=== PATIENT | female | born 1960 | race Caucasian/White ===

== ENCOUNTER 2022-09-01 09:23 | Outpatient (CLI) | payer OTHER, SELFPAY ==
[2022-09-01 11:31] LABS: Albumin* 4.2 g/dL (3.3-5.0)
[2022-09-01 11:32] LABS: Chloride* 105 mmol/L (96-114); Potassium* 4.2 mmol/L (3.6-5.1); Sodium* 139 mmol/L (135-149)
[2022-09-01 11:34] LABS: Aspartate Amino Transferase* 20 U/L (12-35); Bilirubin Total* 1.2 mg/dL (0.1-1.5); Blood Urea Nitrogen* 14 mg/dL (7-30); Carbon Dioxide* 27 mmol/L (20-32); Cholesterol* 131 mg/dL (90-199); Creatinine* 0.8 mg/dL (0.5-1.5); Estimated Glomerular Filt Rate 83 ml/min; Glucose* 90 mg/dL (60-115); Total Protein* 6.6 g/dL (6.0-8.3)
[2022-09-01 11:35] LABS: Alanine Aminotransferase* 16 U/L (4-35); Alkaline Phosphatase* 89 U/L (40-150); Calcium* 9.6 mg/dL (8.4-10.6); HDL Cholesterol* 69 mg/dL (>=50); LDL Cholesterol Calculated 52 mg/dL (<100); Triglycerides* 49 mg/dL (40-149)
[2022-09-01 12:08] LABS: TSH With Reflex to FT4* 0.754 uIU/mL (0.270-4.200)
== END 2022-09-01 09:24 | disposition home or self-care (01) ==
PROVIDERS: PCP Family Medicine; Visit Provider Family Medicine
DX: E03.9 Hypothyroidism, unspecified (principal); Z13.6 Encounter for screening for cardiovascular disorders; Z79.899 Other long term (current) drug therapy
CPT/HCPCS: 80053; 80061; 84443

== ENCOUNTER 2022-10-29 09:06 | Outpatient (CLI) | payer OTHER, SELFPAY ==
--- NOTE | 2022-10-29 09:15 | CRLHL7_ITS ---
For Patients: As a result of the Century Cures Act, medical imaging exams and procedure reports are released immediately into your electronic medical record. You may view this report before your referring provider. If you have questions, please contact your health care provider. BILATERAL SCREENING MAMMOGRAM WITH COMPUTER-AIDED DETECTION AND TOMOSYNTHESIS TECHNIQUE: CC and MLO views were obtained. These mammographic images have been obtained using full-field digital technique. These mammographic images were interpreted with the benefit of computer-aided detection. Breast Tomosynthesis was used in this interpretation. COMPARISON FILM: 09/17/21, 07/04/19, 07/29/17. FINDINGS: There are scattered areas of fibroglandular density IMPRESSION: There is no radiographic evidence for malignancy. ASSESSMENT: BI-RADS Category 1: Negative RECOMMENDATION: Routine screening mammogram in 1 year. A lay language report of this examination will be provided to the patient. Francisco Javier Morales M.D. Diagnostic Radiologist [email or web address] EDILIA/Dictated by: Francisco Javier Morales MD @ 10/29/2022 1:26:00 PM (Electronically Signed)
== END 2022-10-29 09:07 | disposition home or self-care (01) ==
LOC: MAMMO 09:06
PROVIDERS: PCP Family Medicine; Visit Provider Family Medicine
DX: Z12.31 Encounter for screening mammogram for malignant neoplasm of breast (principal)
CPT/HCPCS: 77063; 77067

== ENCOUNTER 2023-06-24 09:23 | Outpatient (CLI) | payer OTHER, SELFPAY | END 2023-06-24 09:24 | disposition home or self-care (01) | LOC: NFLDREF 09:25 | PROVIDERS: PCP Family Medicine; Visit Provider Family Medicine | DX: I10 Essential (primary) hypertension (principal); E66.9 Obesity, unspecified | CPT/HCPCS: 80048 ==

== ENCOUNTER 2023-12-23 08:21 | Outpatient (CLI) | payer OTHER, SELFPAY | END 2023-12-23 08:22 | disposition home or self-care (01) | LOC: NFLDREF 14:33 | PROVIDERS: PCP Family Medicine; Referring Provider Family Medicine; Visit Provider Family Medicine | DX: D58.2 Other hemoglobinopathies (principal); E55.9 Vitamin D deficiency, unspecified; E03.9 Hypothyroidism, unspecified; Z79.899 Other long term (current) drug therapy; Z13.220 Encounter for screening for lipoid disorders | CPT/HCPCS: 80053; 80061; 82306; 84443 ==

== ENCOUNTER 2024-03-21 10:05 | Outpatient (CLI) | payer OTHER, SELFPAY ==
--- OUTSIDE RECORDS SUMMARY | 2024-03-21 10:08 | XMS_ITS | Referral Summary ---
Author Organization [facility] Address [address] [place] [address] Care Team Providers Care Port Drier Name Role Phone Unavailable Primary Care Provider Unavailabl e Source Comments Patient records contain information from all sites at [facility]. For routine questions regarding patient records, call [phone] during business hours, M-F 8:00 AM - 5:00 PM Central Time. Record requests for emergency care only can be directed to [phone] at any time.[facility] Allergies Active Allergy Reactions Criticality Noted Date Comments Gluten GI intolerance 07/06/2018 swelling Medications Medication Sig Dispensed Refills Start Date End Date Status potassium chloride (KLOR-CON SPRINKLE) 10 mEq ER sprinkle capsule Take 1 capsule by mouth 2 (two) times a day. 03/24/2022 Active levothyroxine (SYNTHROID, LEVOTHROID) 75 mcg tablet Take 75 mcg by mouth every morning before breakfast. 05/25/2023 Active triamterene-hydroC HLOROthiazide (DYAZIDE) 37.5-25 mg per capsule Take 1 capsule by mouth daily. 11/28/2015 Active UNABLE TO FIND Progesterone 200/DHEA 8.5 mg/Testosterone 1.5 mg/g (topiclick), 1/2 gm qhs 05/15/2023 Active hydrocortisone (Anucort-HC) 25 mg suppository Insert 25 mg into the rectum once a week. 02/18/2023 Active UNABLE TO FIND methylcobalamine 5mg/ml with preservatives, 0.2 ml once weekly. 10ml x 2 vials. Syringe 1 ml 29 G x 1/2 excel comfort point- quantity 50 02/05/2023 Active L.acidoph-L.bulg-B .bif-S.therm (BACID) 1 billion cell- 250 mg per tablet Take 1 tablet by mouth daily. Active magnesium citrate 100 mg tablet Take by mouth 4 (four) times a day. 150 MG FOUR TIMES DAILY Active ascorbic acid, vitamin C, (Vitamin C) 1,000 mg tablet Take 1,000 mg by mouth daily. 2000 MG DAILY Active zinc acetate (GALZIN) 25 mg (zinc) capsule Take 50 mg by mouth 2 (two) times a day. Active cholecalciferol (Vitamin D3) 50 mcg (2,000 Unit) tablet Take 50 mcg by mouth daily. Active ibuprofen (ADVIL,MOTRIN) 200 mg capsule Take 600 mg by mouth every 6 (six) hours as needed for pain. Active acetaminophen (TYLENOL) 325 mg tablet Take 500 mg by mouth every 4 (four) hours as needed for pain. Active medical cannabis oil oral Take 1 each by mouth. THC component: O mg CBD component: 15 mg Active aspirin 325 mg tablet Take 325 mg by mouth every 6 (six) hours as needed for pain. Active polycarbophil (FIBERCON) 625 mg tablet Take 625 mg by mouth daily. 10 MG FIBER TAB Activ e tacrolimus (PROTOPIC) 0.1 % ointment Apply to sore areas in mouth BID prn symptoms 30 g 3 06/01/2023 Active clobetasoL (TEMOVATE) 0.05 % ointment Apply 1 Application topically 2 (two) times a day. Apply to vulva BID x 2 wks then qhs x 2 wks then M+Th nights ongoing 30 g 3 06/01/2023 Active Social History Tobacco Use Types Packs/Day Years Used Date Smoking Tobacco: Never Passive Smoke Exposure: Never Smokeless Tobacco: Never Tobacco Cessation:Counseling Given: Not Answered Nutrition Answer Date Recorded Nutrition: EVOO Fat Source Unknown 11/20 Nutrition: Servings of Fruits/Vegetables per Day Not on file 11/20/2020 Dental Answer Date Recorded Dental: Regular Dentist Unknown 11/21/19 21 Sex and Gender Information Value Date Recorded Sex Assigned at Not on file Gender Identity Not on file Sexual Orientation Not on file Last Filed Vital Signs Vital Sign Reading Time Taken Comments Blood Pressure 144/86 06/01/2023 9:18 AM CDT Pulse 84 06/01/2023 9:18 AM CDT Temperature - - Respiratory Rate - - Oxygen Saturation - - Inhaled Oxygen Concentration - - Weight 80.9 kg (178 lb 5.6 oz) 06/01/2023 9:18 A M CDT Height 160 cm (5' 2.99) 06/01/2023 9:18 AM CDT Body Mass Index 31.6 06/01/2023 9:18 AM CDT Plan of Treatment Not on file Procedures Procedure Name Priority Date/Time Associated Diagnosis Comments EXTI THYROID-STIMULATING HORMONE-SENSITIVE (S-TSH), S Routine 07/08/2023 8:59 AM CDT EXTI BASIC METABOLIC PANEL, S/P Routine 04/06/2019 2:20 PM CDT from Last 3 Months or Most Recently Relevant to Health Maintenance
--- OUTSIDE RECORDS SUMMARY | 2024-03-21 10:08 | XMS_ITS | Clinical Summary ---
Author Organization [facility] Address [employer], [place] [address] Care Team Providers Care Senior Oracle Database Developer Name Role Phone Alanna Denny MD Primary Care Provider + Allergies Active Allergy Reactions Criticality Noted Date Comments Gluten *Unknown 07/06/2018 swelling Medications Medication Sig Dispensed Refills Start Date End Date Status triamterene-hydr ochlorothiazide, 37.5-25 mg, (DYAZIDE) 37.5-25 mg capsule Take 1 capsule by mouth every morning. 0 11/28/2015 Active potassium chloride (MICRO-K) 10 mEq Controlled-relea se capsuleIndicatio ns:Hypokalemia TAKE 1 CAPSULE BY MOUTH TWICE DAILY 180 Capsule 3 03/24/2022 Active medication order composerIndicati ons:Menopause Progesterone 200/DHEA 8.5 mg/Testosterone 1.5 mg/g (topiclick), 1/2 gm qhs 45 g 1 05/15/2023 Active Anucort-HC 25 mg suppository Insert 25 mg rectally. Weekly 02/18/2023 Active medication order composerIndicati ons:Fluid retention Probiotic vital 10 5 + billion- Three times per week Fiber Gummy Supplement Flax/borage oil three daily Oral mag citrate 150 mg 4 daily b-2 200 mg D3 1000 IU, 2 daily Zinc 35 mg 2 daily Vitamin C with food 2000 mg/day 0 05/25/2023 Active levothyroxine (SYNTHROID) 75 mcg tabletIndication s:Hypothyroidism , unspecified type 1 tablet AC every morning 90 Tablet 05/25/2023 Active thyroid (ARMOUR THYROID) 30 mg tabletIndication s:Hypothyroidism , unspecified type TAKE 1 TABLET BY MOUTH DAILY BEFORE A MEAL ALTERNATING WITH 2 EVERY OTHER DAY 125 Tablet 3 08/25/2023 Active medication order Elis ons:Vitamin B12 deficiency methylcobalamine 5mg/ml with preservatives, 0.2 ml once weekly. 10ml x 2 vials. Syringe 1 ml 29 G x 1/2 excel comfort point- quantity 50 10 mL 1 11/03/2023 Active Active Problems Problem Noted Date Diagnosed Date Fatigue 11/28/2015 Menopause 11/28/2015 Potassium deficiency 11/28/2015 Magnesium deficiency 11/28/2015 Family History Medical History Relation Name Comments Allergies Brother Asthma Brother Other Brother killed in car a ccident Good Health Daughter Other Father parkinsons Psychiatric illness Father anxiety, depression, committed suicide Heart Disease Maternal Grandfather Heart Disease Maternal Grandmother Other Maternal Grandmother hypocho ndria Other Mother deafness, obesi ty Good Health Paternal Grandfather Diabetes Paternal Grandmother Heart Disease Paternal Grandmother Cancer-ovarian Sister Other Sister obesity Thyroid Disease Sister Relation Name Status Comments Brother Daughter Alive Father Maternal Grandfather Maternal Grandmother Mother Alive Paternal Grandfather Paternal Grandmother Sister Alive Social History Tobacco Use Types Packs/Day Years Used Date Smoking Tobacco: Never Smokeless Tobacco: Never Alcohol Use Standard Drinks/Week Comments Yes 0 (1 standard drink = 0.6 oz pur e alcohol) per week Social Connections Answer Date Recorded Frequency of Communication with Friends and Fami ly 0 05/24/2023 Financial Resource Strain Answer Date R ecorded Difficulty of Paying Living Expenses 3 05/24/2023 Difficulty of Paying Living Expenses Not on file 05/24/2023 Food Insecurity Answer Date Recorded Worried About Running Out of Food in the Last Ye ar 1 05/24/2023 Transportation Needs Answer Date Record ed Lack of Transportation (Medical) 1 05/24/2023 Housing Stability Answer Date Recorded Unable to Pay for Housing in the Last Year 1 05/24/2023 Sex and Gender Information Value Date Recorded Sex Assigned at Not on file Gender Identity Not on file Sexual Orientation Not on file Obstetrics History Last Filed Vital Signs Vital Sign Reading Time Taken Comments Blood Pressure 124/78 05/25/2023 3:23 PM CDT Pulse 84 05/25/2023 3:23 PM CDT Temperature - - Respiratory Rate - - Oxygen Saturation - - Inhaled Oxygen Concentration - - Weight 73.8 kg (162 lb 12.8 oz) 07/06/2018 9:12 AM CDT Height 163 cm (5' 4.17) 12/30/2017 11: 17 AM CDT Body Mass Index 27.79 12/30/2017 11:17 AM CDT Plan of Treatment Health Maintenance Due Date Last Done Comments Tdap 1970 Depression screening for age 12+ 1971 HIV for age 15-65 1974 Hepatitis C screening for age 18-79 1977 Tetanus booster 1979 Colonoscopy through age 75 2004 Lipids for age 45-75 2004 Mammogram for age 45-75 2004 Zoster (shingles) series for age 50+ (1 of 2) 2009 BMI (ht and wt on same day) for age 18+ 12/30/2018 12/30/2017, 11/12/2016, 11/28/2015 Pap test for age 21-65 09/25/2019 7, 09/25/2016, 12/05/2013, Additional history exists COVID-19 vaccine series ( - 2022-24 season) 2023 06/20/2022, 02/13/2022, 08/25/2021, Additional history exists Influenza for age 50-64 05/21/2024 Pneumococcal series for age 6-64 Aged Out No longer eligible based on patient's age to complete this topic Procedures Procedure Name Priority Date/Time Associated Diagnosis Comments WET FINISHER WOOL THIN PREP PAP SCREEN IMAGED Routine 09/25/2016 11:00 AM TELESCOPE OPERATOR from Last 3 Months or Most Recently Relevant to Health Maintenance Results * WET FINISHER WOOL THIN PREP PAP SCREEN IMAGED (09/25/2016 11:00 AM TELESCOPE OPERATOR) Case Report Gynecologic Cytology Report ? Case: [id number] ? Authorizing Provider: ??Alanna Denny MD ??Collected: ? 09/25/2016 1100 ? First Screen: ?Marcin Spicer ?Received: ?09/28/2016 1323 ? Specimen: ?WET FINISHER WOOL ThinPrep Vial Screening, Cervical/Vaginal ? 10/02/2016 8:49 AM [facility] ENTRAL LABORATORY INTERPRETATION/ RESULT NEGATIVE FOR INTRAEPITHELIAL LESION OR MALIGNANCY (NIL) (none) 10/02/2016 8:49 AM [facility] [employer] [facility] ENTRMA LABORATORY IMEN ADEQUACY Satisfactory for evaluation No endocervical component seen 10/02/2016 8:49 AM [facility] [employer] [facility] ENTRMA LABORATORY HPV REQUEST HPV and PAP 10/02/2016 8:49 AM [facility] [employer] [facility] ENTRAL LABORATORY Last Pap Result NIL 7 8:49 AM [email or web address] Menstrual Status Postmenopausal 10/02/2016 8:49 AM [facility] [employer] [facility] ENTRAL LABORATORY Automated Review Successful 10/02/2016 8:49 AM [facility] ENTRAL LABORATORY Comment:Specimen processed s uccessfully by automated electronic engineering technician device, ThinPrep Imaging System, [employer] ANCILLARY TESTING WET FINISHER WOOL HPV Ordered, Please see separate report 10/02/2016 8:49 AM [facility] [employer] [facility] ENTRMA LABORATORY Note The pap test is a screening technique, not a diagnostic procedure. ??It is used primarily to screen for squamous cancers and precursor lesions. ??Published studies have shown that it is subject to both false negative and false positive results. ??The pap test should not be used as the sole means to diagnose or exclude pre-malignant and malignant lesions. Interpreted at [facility] ([facility], [facility], [facility], [facility], [facility], [facility], [facility]) 10/02/2016 8:49 AM [facility]-C ENTRAL LABORATORY Other (Cervical/Vagina l) 09/25/2016 11:00 AM TELESCOPE OPERATOR 09/28/2016 1:23 PM TELESCOPE OPERATOR Alanna Denny MD PATHOLOGY/[facility] [employer] LABORATORY-CENTRAL LABORATORY [address] [place] [address], from Last 3 Months or Most Recently Relevant to Health Maintenance Care Teams Senior Oracle Database Developer Relationship Specialty Start Date End Date Alanna Denny MD [address] [place] [id number] PCP - General Family Practice 11/28/15
--- OUTSIDE RECORDS SUMMARY | 2024-03-21 10:08 | XMS_ITS | Clinical Summary ---
Author Organization [facility] Address [address] [place] [address] Care Team Providers Care Lead Javascript Engineer Name Role Phone Unavailable Primary Care Provider Unavailabl e Source Comments Patient records contain information from all sites at [facility]. For routine questions regarding patient records, call [phone] during business hours, M-F 8:00 AM - 5:00 PM Central Time. Record requests for emergency care only can be directed to [phone] at any time.[facility] Allergies Active Allergy Reactions Criticality Noted Date [...] 06/01/2023 9:18 AM CDT Plan of Treatment Health Maintenance Due Date Last Done Comments CT Colonography 1959 Cologuard 1959 Colonoscopy 1959 Colorectal Cancer Screening 1959 FIT 1959 HIV Screening 1959 Hepatitis C Screening 1959 Lipid (Cholesterol) Screening 1959 Mammogram 1959 Zoster Vaccines (1 of 2) 2009 Cervical Cancer Screening 09/25/2019 09/25/2016 Fasting Glucose for Diabetes Screening 04/06/2022 04/06/2019 COVID-19 Vaccine ( season) 2023 06/20/2022, 02/13/2022, 08/25/2021, Additional history exists Office Visit for Blood Pressure Check / Re-check 08/31/2023 06/01/2023 Depression Screening (Annual PHQ-2) 09/20/2023 DTaP,Tdap,and Td Vaccines (2 - Td or Tdap) 11/08/2023 11/08/2013 Influenza Vaccine (#1) 2024 06/24/2023, 2019 Thyroid Stimulating Hormone (TSH) test for thyroid function 07/08/2024 07/08/2023, 05/25/2023, 02/26/2022, Additional history exists Pneumococcal vaccine (0-64 years) Aged Out No longer eligible based on patient's age to complete this topic Procedures Procedure Name Priority Date/Time Associated Diagnosis Comments EXTI THYROID-STIMULATING HORMONE-SENSITIVE (S-TSH), S Routine 07/08/2023 8:59 AM CDT EXTI BASIC METABOLIC PANEL, S/P Routine 04/06/2019 2:20 PM CDT from Last 3 Months or Most Recently Relevant to Health Maintenance
--- OUTSIDE RECORDS SUMMARY | 2024-03-21 10:08 | XMS_ITS ---
Author Organization [facility] Address [address] [place] [address] Care Team Providers Care Cutter Operator Brick Name Role Phone Unavailable Unavailable Unavailable Surgery Details Not on file Complications Check Surgery Details section. Procedure Estimated Blood Loss Check Surgery Details section. Procedure Findings Check Surgery Details section. Procedure Specimens Taken Check Surgery Details section.
--- NOTE | 2024-03-21 10:15 | CRLHL7_ITS ---
For Patients: As a result of the Century Cures Act, medical imaging exams and procedure reports are released immediately into your electronic medical record. You may view this report before your referring provider. If you have questions, please contact your health care provider. BILATERAL SCREENING MAMMOGRAM WITH COMPUTER-AIDED DETECTION AND TOMOSYNTHESIS TECHNIQUE: CC and MLO views were obtained. These mammographic images have been obtained using full-field digital technique. These mammographic images were interpreted with the benefit of computer-aided detection. Breast Tomosynthesis was used in this interpretation. COMPARISON FILM: 10/29/22, 09/17/21, 07/17/14. FINDINGS: There are scattered areas of fibroglandular density IMPRESSION: There is no radiographic evidence for malignancy. ASSESSMENT: BI-RADS Category 1: Negative RECOMMENDATION: Routine screening mammogram in 1 year. A lay language report of this examination will be provided to the patient. Francisco Javier Morales M.D. Diagnostic Radiologist [email or web address] YOHAN/[email or web address] Transcribed: 1:07 p.rambo flores/Dictated by: Francisco Javier Morales MD @ 03/24/2024 11:26:00 AM (Electronically Signed)
== END 2024-03-21 10:06 | disposition home or self-care (01) ==
LOC: MAMMO 10:06
PROVIDERS: PCP Family Medicine; Visit Provider Family Medicine
DX: Z12.31 Encounter for screening mammogram for malignant neoplasm of breast (principal)
CPT/HCPCS: 77063; 77067

== ENCOUNTER 2025-09-10 05:38 | Outpatient (CLI) | payer MEDICARE, BC, SELFPAY | END 2025-09-10 05:39 | disposition home or self-care (01) | LOC: AMB 09-12 17:49 | PROVIDERS: Visit Provider Student in an Organized Health Care Education/Training Program | DX: R56.9 Unspecified convulsions (principal) | CPT/HCPCS: A0998 ==

== ENCOUNTER 2025-09-10 08:50 | Emergency (ER) | payer MEDICARE, BC, SELFPAY ==
[2025-09-10] VITALS (22 sets, daily range): BP systolic 114–129; BP diastolic 71–83; PULSE 96–104; RESP 18; TEMP 36.7; O2SAT 88–99
--- OUTSIDE RECORDS SUMMARY | 2025-09-10 08:55 | XMS_ITS | Clinical Summary ---
Author Organization [facility] Address [address] [place] [id number] Care Team Providers Care Rackman Name Role Phone Annabel Matos DO Primary Care Provider [phone] Allergies Active AllergyReactionsCriticalityNoted DateCommentsGluten*Kuphmhi2407/06/2018 swelling Medications MedicationSigDispense QuantityRefillsLast FilledStart DateEnd DateStatus potassium chloride (MICRO-K) 10 mEq Controlled-release capsule Indications:HypokalemiaTAKE 1 CAPSULE BY MOUTH TWICE DAILY 180 Capsule ctive medication order composer Indications:MenopauseProgesterone 200/DHEA 8.5 mg/Testosterone 1.5 mg/g (topiclick), 1/2 gm qhs 45 g ctive medication order composer Indications:Fluid retentionProbiotic vital 10 5 + billion- Three times per week Fiber Gummy Supplement Flax/borage oil three daily Oral mag citrate 150 mg 4 daily b-2 200 mg D3 1000 IU, 2 daily Zinc 35 mg 2 daily Vitamin C with food 2000 mg/ili288ctive levothyroxine (SYNTHROID) 75 mcg tablet Indications:Hypothyroidism, unspecified type1 tablet AC every morning 90 Tablet 05/25/2023ctive medication order composer Indications:Vitamin B12 deficiencymethylcobalamine 5mg/ml with preservatives, 0.2 ml once weekly. 10ml x 2 vials. Syringe 1 ml 29 G x1/2 excel comfort point- quantity 50 10 mL ctive GaviLyte-C 240-22.72-6.72 -5.84 gram solution TAKE 240 MLS BY MOUTH EVERY 10 MINUTES UNTIL FECAL EFFLUENT IS CLEAR02/ Active magnesium citrate 100 mg tab Take by mouth.Active Okquzlprqnj-EH-Jy-S.thermophl 1 billion cell- 250 mg tab Take 1 Tablet by mouth once daily.Active cholecalciferol (Vitamin D3) 2,000 unit tablet Take 50 mcg by mouth.Active calcium polycarbophiL (FIBERCON) 625 mg tablet Take 625 mg by mouth.Active ascorbic acid (vitamin C) (VITAMIN C) 1,000 mg tablet Take 1,000 mg by mouth.Active Active Problems ProblemNoted DateDiagnosed DateHypothyroidism (acquired)04/30/2025Lichen planus 04/30/2025Post-bgiiiiyjn27/11/2025 Resolved Problems ProblemNoted DateDiagnosed DateResolved ZutrAopujov62Menopause Potassium zfbxucewhu52Magnesium deficiency Family History Medical HistoryRelationNameCommentsAllergiesBrotherAsthmaBrotherOtherBrother killed in car accidentGood HealthDaughterOtherFatherparkinsonsPsychiatric illnessFatheranxiety, depression, committed suicideHeart DiseaseMaternal GrandfatherHeart DiseaseMaternal GrandmotherOtherMaternal Grandmother hypochondriapremature cadMaternal Uncleheart attack 42OtherMotherdeafness, obesityGood HealthPaternal GrandfatherDiabetesPaternal GrandmotherHeart Disease Paternal GrandmotherCancer-ovarianSisterOtherSisterobesityThyroid DiseaseSister Cancer-breastNo Family HistoryCancer-colonNo Family HistoryCancer-prostateNo Family HistoryRelationNameStatusCommentsBrotherDeceasedDaughterAliveFather DeceasedMaternal GrandfatherDeceasedMaternal GrandmotherDeceasedMaternal Uncle DeceasedMotherAlivePaternal GrandfatherDeceasedPaternal GrandmotherDeceased SisterAlive Social History Tobacco UseTypesPacks/DayYears UsedDateSmoking Tobacco: NeverSmokeless Tobacco: NeverAlcohol UseStandard Drinks/WeekCommentsYes0 (1 standard drink = 0.6 oz pure alcohol)per weekPHQ-2AnswerDate RecordedPHQ-2 TOTAL [id number] ConnectionsAnswerDate RecordedDo you often feel lonely or isolated from those around you?Financial Resource StrainAnswerDate RecordedDifficulty of Paying Living Glxsjlnm898/11/2025Difficulty of Paying Living ExpensesNot on file 04/30/2025Food InsecurityAnswerDate RecordedDo you worry your food will run out before you are able to buy more?Transportation NeedsAnswerDate RecordedDoes lack of transportation keep you from medical appointments?1 04/30/2025Does lack of transportation keep you from work, meetings or getting things that you need?Housing StabilityAnswerDate RecordedWhat is your housing situation today?UtilitiesAnswerDate RecordedDo you have trouble paying for utilities (for example, heat, electricity, water, phone)?1 04/30/2025CommentsNoSex and Gender InformationValueDate RecordedSex Assigned at BirthNot on fileLegal WyfHhmvdo64/14/2013 5:27 AM CSTGender Identity Not on fileSexual OrientationNot on file Obstetrics History GravidaParaTermPretermABIABSABEctopicMultipleLivingLive Bxrdeg42MvnuThgmzpdLA Total LaborLabor/2nd/2coPfwvnhLgdIideKmylLDKAwqK2T4GchhLqdaHsjebjp Last Filed Vital Signs Vital SignReadingTime TakenCommentsBlood Jjizckwo553/8008 1:29 PM CDT Jdnur410204/30/2025 1:29 PM CDTTemperature--Respiratory Rate--Oxygen Rgkkchybyg17% 04/30/2025 1:29 PM CDTInhaled Oxygen Concentration--Gedrqf28.8 kg (164 lb 12.8 oz)04/30/2025 1:29 PM MNJAlhdcs556.9 cm (5' 3.74)04/30/2025 1:29 PM CDTBody Mass Index28.5208 1:29 PM CDT Plan of Treatment Health MaintenanceDue DateLast DoneCommentsTetanus wmfvkgk1909/23/1970HIV for age 15-Hepatitis C screening for age 18-7909/23/1977Lipids for age 45-75 2004Pneumococcal series for age 50+ (1 of 1 - PCV)2009Zoster (shingles) series for age 50+ (1 of 2)2009Pap test for age 21-09/25/2016, 09/25/2016, 12/05/2013, Additional history existsDEXA/DXA scan for age 65+Medicare Wellness for age 65+2024Mammogram for age 45-7506/, 10/29/2022, 09/17/2021, Additional history exists COVID-19 vaccine series (2024- season)/09/2021, 02/13/2022, 08/25/2021, Additional history existsInfluenza Vaccine (#1)5BMI (ht and wt on same day) for age 18+/07/2025, 12/30/2017, 11/12/2016, Additional history existsDepression screening for age 12+RSV vaccine for adults or (1 - 1-dose 75+ series)5Colonoscopy through age 75/, 07/13/2019, 06/17/2016, Additional history existsHepatitis B series for 19+Aged OutNo longer eligible based on patient's age to complete this topic Procedures Procedure NamePriorityDate/TimeAssociated DiagnosisCommentsSCAN-COLONOSCOPY 07/10/2025 10:00 AM CDT SCAN-MAMMOGRAPHY VIDHOL9603/21/2024 12:00 AM CDT XR DXA BONE DENSITY 2 SITES LVMXWKhbuzyy43/23/2017 2:42 PM TECHNOLOGY APPLICATIONS CONSULTANT Menopause ENERGY DIRECTOR THIN PREP PAP SCREEN GKIXBKNtjfora94/06/2017 11:00 AM TECHNOLOGY APPLICATIONS CONSULTANT from Last 3 Months or Most Recently Relevant to Health Maintenance Results * SCAN-COLONOSCOPY (07/10/2025 10:00 AM CDT) Narrative Procedure Note Lavon Stephens MD - 07/10/2025 9:02 AM CDT [facility] [address], [address], [place] [address] Patient Name: Leigh Todd Gender: Female Exam Date: 07/10/2025 Visit Number: [id number] Age: 64 Years Date of : 1960 Attending MD: Lavon Stephens MD Medical Record#: [id number] Procedure: Colonoscopy Indications: Colorectal cancer screening Referring MD: Referral Self Primary MD: Annabel Booker DO Medications: Admitting Medications: 0.9% Normal Saline at TKO Intra Procedure Medications: Patient received monitored anesthesia care. Complications: No immediate complications Procedure: An examination of the heart and lungs was performed and found to be within acceptable limits. . The patient was therefore deemed a reasonablecandidate for endoscopy and sedation. The risks and benefits of the procedure were explained to thepatient.After obtaining informed consent, the patient received monitoredanesthesia care and I passed the scope without difficulty via the rectum to the ileum. The appendiceal orificeand ic valve were identified. The scope was retroflexed during theexamination The quality of the prep was excellent (Miralax/Gatorade/2tablets Bisacodyl/Magnesium Citrate). This was a complete examination throughout the entire colon. Findings: ?? Normal finding. Location - ileum 3-cm. ?? Polyp location: ascending colon. Quantity: 3. Size: 2 mm, 4 mm, 5 mm.Polyp shape: sessile. Maneuver: polypectomy was performed with a cold snare. Removal: complete. Retrieval: complete. Bleeding: none. ?? Diverticulosis. Location: - entire colon. Description: moderate.No inflammation present. Anal canal: internal hemorrhoid(s) Remainder of the exam is normal. Impression: Screening Colonoscopy Colorectal polyps Diverticulosis of colon without diverticulitis Preliminary Plan: The patient and their physician will receive a copy of the pathologyreport as well as pathology-based recommendations for future screening orsurveillance. Recommendation Comments: Diverticulosis present: we recommend to increasefiber Intake. Foods high in fiber include fruits, vegetables, wholegrains, and legumes. Aim for 25-30 grams of fiber per day. Adding a fibersupplement can help. Pathology Results: A: COLON, ASCENDING, POLYPS: 1. Tubular adenomas (3) 2. Negative for high grade dysplasia 3. Per the colonoscopy report: a. Polyp sizes: 2 mm, 4 mm and 5 mm b. Resection: Complete c. Retrieval: Complete MICROSCOPIC A: Performed SPECIAL STAINING/DEEPER A: Deeper Electronically signed by: Kvng Mckeon MD Interpreted at [facility], [address] [place] [id number] Orders Instruction(s)/Education: Instruction/Education Timeframe Assessment Colon Cancer Prevention Z12.11 Colon Polyps K63.5 Diverticulosis/Diverticulitis K57.30 Hemorrhoids (Internal) K64.8 High Fiber Diet K64.8 Final Plan: Repeat colonoscopy in 3 years. We will attempt to contact you at appropriate intervals via U.S. mail. Wemay not be able to find you or contact you at that time, therefore youshould know that the responsibility for following our recommendation restswith you. If you don't hear from us at the time your procedure is due,please contact our office to schedule an appointment. If your contactinformation should change, please contact our office so that we can updateyour record. _Electronically signed by: Lavon Stephens MD 07/10/2025 cc: Annabel Booker DO Authorizing ProviderResult TypeResult StatusFamerrill Stephens MDOTHERFinal Result * SCAN-MAMMOGRAPHY REPORT (03/21/2024 12:00 AM CDT)Anatomical RegionLaterality ModalityOther Narrative Authorizing ProviderResult TypeResult StatusScannerOTHERFinal Result * XR DXA BONE DENSITY 2 SITES AXIAL (11/12/2016 2:42 PM TECHNOLOGY APPLICATIONS CONSULTANT)Anatomical Region LateralityModalitySpine, HIPS, HIPL, HIPROtherSpecimen (Source)Anatomical Location / LateralityCollection Method / VolumeCollection TimeReceived Time Narrative 11/13/2016 3:27 PM TECHNOLOGY APPLICATIONS CONSULTANT Please see scanned document for results of this study. Authorizing ProviderResult TypeResult StatusMichael Curtis Painting MDDEXAFinal Result * ENERGY DIRECTOR THIN PREP PAP SCREEN IMAGED (09/25/2016 11:00 AM TECHNOLOGY APPLICATIONS CONSULTANT)ComponentValueRef RangeTest MethodAnalysis TimePerformed AtPathologist SignatureCase Report Gynecologic Cytology Report ? Case: [id number] ? Authorizing Provider: ??lAanna Denny MD ??Collected: ? 09/25/2016 1100 ? First Screen: ?Marcin Spicer ?Received: ?09/28/20161323 ? Specimen: ?ENERGY DIRECTOR ThinPrep Vial Screening, Cervical/Vaginal ? 10/02/2016 8:49 AM [facility] INTERPRETATION/RESULTNEGATIVE FOR INTRAEPITHELIAL LESION OR MALIGNANCY (NIL) (none)10/02/2016 8:49 AM [facility] [employer] [facility]-CENTRAL LABORATORY at 0849 CSTSPECIMEN ADEQUACY Satisfactory for evaluation No endocervical component seen10/02/2016 8:49 AM [facility] [employer] [facility] LABORATORY- CENTRAL LABORATORYHPV REQUESTHPV and PAP10/02/2016 8:49 AM [facility] LABORATORYLast Pap SuhytsNPV09/13/2017 8:49 AM [facility] LABORATORYMenstrual XmxxssUjwdbsvsvjmmew30/13/2017 8:49 AM [facility] LABORATORYAutomated ReviewSuccessful 10/02/2016 8:49 AM [facility] LABORATORYComment: Specimen processed successfully by automated sql dba device, ThinPrep Imaging System, [employer]ANCILLARY TESTING GYNHPV Ordered, Please see separate kwiahw8310/02/2016 8:49 AM [facility] LABORATORYNoteThe pap test is a screening technique, not a diagnostic procedure. ??It is used primarily to screenfor squamous cancers and precursor lesions. ??Published studies have shown that it is subject to both false negative and false positive results. ??The pap test should not be used as the sole means todiagnose or exclude pre-malignant and malignant lesions. Interpreted at [facility] ([facility], [facility], [facility], [facility], [facility], [facility], [facility]) 10/02/2016 8:49 AM [facility] LABORATORYSpecimen (Source)Anatomical Location / LateralityCollection Method / VolumeCollection TimeReceived TimeOther (Cervical/Vaginal)09/25/2016 11:00 AM CST09/28/2016 1:23 PM TECHNOLOGY APPLICATIONS CONSULTANT Narrative Authorizing ProviderResult TypeResult StatusIngrid Johanny Denny MD PATHOLOGY/CYTOLOGYFinal ResultPerforming OrganizationAddressCity/State/ZIP Code Phone Number [facility] [address] [employer] [address] [place] [address], from Last 3 Months or Most Recently Relevant to Health Maintenance Insurance Care Teams Team MemberRelationshipSpecialtyStart DateEnd Date Annabel Matos DO [address] [place] [phone] PCP - GeneralFailly Practice04/30/25
--- NOTE | 2025-09-10 10:30 | CRLHL7_ITS ---
For Patients: As a result of the Century Cures Act, medical imaging exams and procedure reports are released immediately into your electronic medical record. You may view this report before your referring provider. If you have questions, please contact your health care provider. INDICATION: Shaking episode, shortness of breath. TECHNIQUE: CT chest PE was acquired with 95 cc Isovue 370 IV contrast. COMPARISON: None. FINDINGS: Heart and vasculature: Contrast opacification of the pulmonary arterial tree is adequate. No sign of pulmonary embolism. Heart size is normal. Thoracic aorta and pulmonary artery are normal in caliber. Mitral valve calcification. Lungs and pleura: Scattered mild bibasilar atelectasis versus scarring. No suspicious nodule, consolidation, pleural effusion, or pneumothorax. Lymph nodes/mediastinum: No mediastinal, hilar, or axillary adenopathy. Moderate-sized hiatal hernia. Chest wall: No masses. Upper abdomen: No acute or significant findings. Bones: Unremarkable for age. IMPRESSION: No pulmonary embolism. No acute findings in the chest. Please note that all CT scans at this facility use dose modulation, iterative reconstruction, and/or weight-based dosing when appropriate to reduce radiation dose to as low as reasonably achievable. Dictated by Toan Stroud MD @ 09/10/2025 12:42:14 PM (Electronically Signed)
--- NOTE | 2025-09-10 10:40 | ED_ITS ---
HPI - General Adult General Date Seen: 09/10/25 Chief complaint: Altered Mental Status Stated complaint: SOB during sleep, Shaking, gasping for air Time Seen by Provider: 09/10/25 10:03 History of Present Illness HPI narrative: Patient presents to the ER by private vehicle for a somewhat poorly defined event this morning. She says that she went to bed feeling fine, she got up at about 11 30 to go the bathroom, went back to sleep. The next thing she knew there were police in her bedroom. Her apparently reported that she was coughing, he kind of tapped her back and it seemed to get a little bit better but he became concerned and called 911. She says that police woke her up, she briefly felt disoriented for a few seconds but then back to normal. She does not have any complaints at this time. They were worried about possible stroke. She denies any deficits at that time, such as difficulty with speech, balance, strength or sensation. Medics evaluated but did not transport. Past medical history is notable for hypertension, factor 5 Leiden mutation with history of PE, mitral valve prolapse. She does not smoke or drink. No complaints at this time. Related Data Home Medications ?Medication ?Instructions ?Recorded ?Confirmed Probiotic PO .QD 09/08/22 12/30/23 magnesium citrate 150 ml PO ONCE 09/08/2208/21 zinc gluconate 100 mg tablet 450 mg PO ONCE 09/08/22 1 11/11/24 progesterone/testosterone/DHEA topical 03/04/23 cream cholecalciferol (vitamin D3) 25 50 mcg PO QDAY 3 09/10/25 mcg (1,000 unit) capsule levothyroxine 75 mcg capsule 75 mcg PO QDAY 06/24/23 1 11/11/24 potassium chloride 10 mEq 20 meq PO QDAY 12/30/2308/21 tablet,extended release (Klor-Con) vitamin B complex 1 cap PO QDAY 12/30/2309/10 Previous Rx's ?Medication ?Instructions ?Recorded triamterene 37.5 1 tab PO QDAY #90 tabs 12/29 mg-hydrochlorothiazide 25 mg tablet Allergies Allergy/AdvReac Type Severity Reaction Status Date / Time celecoxib (From Celebrex) AdvReac nausea, Verified 12/22/25 12:28 dizziness gluten AdvReac Verified 09/10/25 12:28 Review of Systems Status of ROS: Reports: 10 or more systems reviewed and unremarkable except as noted in History and below [facility] Medical History Oral lichen planus (~2007) ?L43.8 - Other lichen planus (ICD-10) Osteoarthritis of left hip ?M16.12 - Unilateral primary osteoarthritis, left hip (ICD-10) Postmenopausal bleeding ?N95.0 - Postmenopausal bleeding (ICD-10) Plantar fasciitis of left foot ?M72.2 - Plantar fascial fibromatosis (ICD-10) Osteoarthritis of left wrist ?M19.032 - Primary osteoarthritis, left wrist (ICD-10) Multiple lacunar infarcts (01/2018) ?I63.81 - Other cerebral infarction due to occlusion or stenosis of small artery (ICD-10) History of migraine headaches (06/27/10) ?Z86.69 - Personal history of other diseases of the nervous system and sense organs (ICD-10) History of pulmonary embolism (2009) ?Z86.711 - Personal history of pulmonary embolism (ICD-10) History of bone density study ?Z92.89 - Personal history of other medical treatment (ICD-10) Elevated hemoglobin (2017) ?D58.2 - Other hemoglobinopathies (ICD-10) Hypothyroidism ?E03.9 - Hypothyroidism, unspecified (ICD-10) Tubular adenoma of colon ?D12.6 - Benign neoplasm of colon, unspecified (ICD-10) Factor 5 Leiden mutation, heterozygous ?D68.51 - Activated protein C resistance (ICD-10) Pulmonary embolism (~2009) ?I26.99 - Other pulmonary embolism without acute cor pulmonale (ICD-10) Lichen planus ?L43.9 - Lichen planus, unspecified (ICD-10) Migraine with aura (~2011) ?G43.109 - Migraine with aura, not intractable, without status migrainosus (ICD-10) care home current use of diuretic ?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 (ICD-10) Surgical History History of total left hip arthroplasty (06/2023) ?Z96.642 - Presence of left artificial hip joint (ICD-10) History of colonoscopy (07/13/19) ?Z98.890 - Other specified postprocedural states (ICD-10) H/O wisdom tooth extraction (~1979) ?K08.409 - Partial loss of teeth, unspecified cause, unspecified class (ICD- 10) History of dilation and curettage (10/11/19) ?Z98.890 - Other specified postprocedural states (ICD-10) History of (1998) ?Z98.891 - History of uterine scar from previous surgery (ICD-10) Family History Father Parkinson's disease Factor 5 Leiden mutation, heterozygous Depression Migraine headache Suicide, Onset Age: 65 Sister Ovarian cancer Migraine headache Aunt Breast cancer, Onset Age: 55 Depression Paternal Grandmother Diabetes Uncle Diabetes Paternal Grandfather Alcoholic cirrhosis of liver Maternal Grandfather Myocardial infarction, Onset Age: 50 Social History Narrative: , 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, 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, 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, 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 exercises regularly- yoga daily, and [id number] steps daily non-smoker rarely consumes alcohol What is your current living situation?: I presently have a place to live Problems where you live: declined to answer In the past 12 months, utilities in danger of being shut off: no In past 12 months, lack of transportation kept you from medical appts, meetings, work, or getting things needed for daily living: no In the past 12 mos, have been you worried that your food would run out before you had money to buy more?: never true In the past 12 mos, the food you bought just didn't last and you didn't have money to buy more?: never true Highest level of school completed/degree received: Bachelor's degree Physical activity type: walking and yoga How many days of moderate to strenuous exercise, like a brisk walk, did you do in the last 7 days: 5 Smoking Status: Never smoker Non-prescribed substance use: denies use Are you now , , , , never or living with a partner: Social isolation score (0-1 are the most socially isolated patients): 1 How often does anyone, including family, friends and others, physically hurt you : never How often does anyone, including family, friends and others, insult or talk down to you: never How often does anyone, including family, friends and others, threaten you with harm: never How often does anyone, including family, friends and others, scream or curse at you: never Do you think of yourself as: straight/heterosexual Gender Identity: female Are you currently sexually active: Yes (Without vaginal penetration secondary to dryness and discomfort) In the past 12 months, how many sex partners have you had: one Exam Narrative: Exam Narrative: Vital signs reviewed In general, an alert, nontoxic elderly woman, breathing easily, reading a book. Head: Normocephalic, atraumatic. Eyes: Sclera clear. Pupils equal and reactive. ENT: Mucous membranes moist. Neck: Supple without adenopathy. Heart: Regular rate and rhythm without murmur. Lungs: Clear. No increased work of breathing, crackles or wheezes. Abdomen: Soft, nontender to palpation. Extremities: Well perfused, pulses intact. No significant edema. Neurologic: Alert, conversant. Speech fluent, face symmetric. Moves all extremities equally. Skin: Warm, dry well perfused. Affect: Normal. Const: Vital Signs, click to edit/add: Vital Signs - 24 hr 09/10/25 09:02 09/10/25 09:34 09/10/25 09:35 Temperature 98.1 F Pulse Rate 102 H 101 H Pulse Rate [Right Pulse Oximeter] 101 H Respiratory Rate 18 Blood Pressure 125/81 Blood Pressure [Ri ght Upper Arm] 114/79 Pulse Oximetry 96 95 95 Oxygen Delivery Me thod Room Air 09/10/25 09:45 09/10/25 10:00 09/10/25 10:15 Temperature Pulse Rate 104 H 104 H 102 H Pulse Rate [Right Pulse Oximeter] Respiratory Rate Blood Pressure Blood Pressure [Ri ght Upper Arm] Pulse Oximetry 96 96 96 Oxygen Delivery Me thod 09/10/25 10:30 09/10/25 10:45 09/10/25 11:02 Temperature Pulse Rate 102 H 97 99 Pulse Rate [Right Pulse Oximeter] Respiratory Rate Blood Pressure Blood Pressure [Ri ght Upper Arm] Pulse Oximetry 88 95 96 Oxygen Delivery Me thod 09/10/25 11:05 09/10/25 11:15 09/10/25 11:30 Temperature Pulse Rate 99 98 96 Pulse Rate [Right Pulse Oximeter] Respiratory Rate Blood Pressure 114/76 Blood Pressure [Ri ght Upper Arm] Pulse Oximetry 95 96 94 Oxygen Delivery Me thod 09/10/25 11:31 09/10/25 11:58 09/10/25 12:00 Temperature Pulse Rate 96 98 97 Pulse Rate [Right Pulse Oximeter] Respiratory Rate Blood Pressure 116/71 Blood Pressure [Ri ght Upper Arm] Pulse Oximetry 95 97 98 Oxygen Delivery Me thod 09/10/25 12:01 09/10/25 12:15 09/10/25 12:30 Temperature Pulse Rate 99 100 98 Pulse Rate [Right Pulse Oximeter] Respiratory Rate Blood Pressure 126/72 Blood Pressure [Ri ght Upper Arm] Pulse Oximetry 99 99 97 Oxygen Delivery Me thod 09/10/25 12:31 09/10/25 12:45 09/10/25 13:00 Temperature Pulse Rate 99 98 103 H Pulse Rate [Right Pulse Oximeter] Respiratory Rate Blood Pressure 127/77 Blood Pressure [Ri ght Upper Arm] Pulse Oximetry 98 98 98 Oxygen Delivery Me thod 09/10/25 13:01 Temperature Pulse Rate Pulse Rate [Right Pulse Oximeter] Respiratory Rate Blood Pressure 129/83 Blood Pressure [Ri ght Upper Arm] Pulse Oximetry Oxygen Delivery Me thod Course Course ED Course: Patient presents for evaluation after having what sounds like either a respiratory event or possibly a syncopal event that happened during sleep. I do not have any reason to suspect stroke at this time given the absence of any reported deficits. I would worry about something like pulmonary embolism or perhaps a cardiac event. I ordered routine labs, CT of the chest PE protocol given patient's past medical history of pulmonary embolism and reported possible difficulty breathing. I did talk with her as well after he arrived to the ER, he reported that he heard her snoring somewhat loudly, and then felt like her breathing kind of stopped, he felt like her shoulders were shaking at the time, any could not really wake her up for a few minutes. He called 911, says that when the police got there they were able to wake her up and she was briefly little disoriented although this did not last very long. Labs are all entirely normal. I added on a CT scan of the head given 's description of symptoms. This by my review is negative for any hemorrhage or evident mass effect, Radiology report is negative. I also reviewed her CT scan of the chest, I did not see evidence of PE or infiltrate, read as negative by Radiology. Point of care troponin is negative, inflammatory markers negative, white count normal. Overall no concerning findings on evaluation. I did discuss her case with the on-call neurologist at [place], he feels that symptoms are unlikely to be related to seizure or stroke, did feel that this is probably myoclonus and CO2 retention. I recommended that she have a sleep study done, it sounds as if she would likely benefit from CPAP. Results explained, discharge home, return for recurrent or worsening symptoms. Diagnosis: Shaking spell. CO2 retention. Vital Signs Vital signs: Initial Vital Signs Temperature 98.1 F 09/10/25 09:02 Temperature Source Temporal Artery Scan 09/10/25 09:02 Pulse Rate 101 H 09/10/25 09:02 Pulse Rhythm Regular 09/10/25 09:02 Pulse Strength 3+ Normal 09/10/25 09:02 Respiratory Rate 18 09/10/25 09:02 Blood Pressure 114/79 09/10/25 09:02 Blood Pressure Mean 90 09/10/25 09:02 Blood Pressure Position Sitting 09/10/25 09:02 Pulse Oximetry 96 09/10/25 09:02 Oxygen Delivery Method Room Air 09/10/25 09:02 Vital Signs Temperature 98.1 F 09/10/25 09:02 Pulse Rate 101 H 09/10/25 09:02 Respiratory Rate 18 09/10/25 09:02 Blood Pressure 114/79 09/10/25 09:02 Pulse Oximetry 96 09/10/25 09:02 Oxygen Delivery Method Room Air 09/10/25 09:02 Temperature 98.1 F 09/10/25 09:02 Pulse Rate 103 H 09/10/25 13:00 Respiratory Rate 18 09/10/25 09:02 Blood Pressure 129/83 09/10/25 13:01 Pulse Oximetry 98 09/10/25 13:00 Oxygen Delivery Method Room Air 09/10/25 09:02 Medications Administered Medications: Discontinued Medications Generic Name Dose Route Start Last Admin Trade Name Freq PRN Reason Stop Dose Admin Sodium Chloride 1,000 mls @ 1,000 mls/hr 09/10/25 10:30 09/10/25 11:03 0.9 % Sodium Chloride 1000 Ml IV 09/10/25 11:29 1,000 mls/hr .Q1H JUSTIN Administration Medical Decision Making Lab Data Lab results reviewed: Yes I reviewed the patient's lab results Labs: Lab Results 09/10/25 09/10/25 Range/Units 10:31 11:05 WBC 7.66 (4.50-11.00) K/uL RBC 5.04 (4.00-5.20) m/uL Hgb 15.7 (12.0-16.0) gm/dL Hct 45.7 (33.0-51.0) % MCV 91 (80-100) fL MCH 31 (26-34) pg MCHC 34 (32-36) gm/dL RDW Coeff of Marleni 12.8 (11.5-15.5) % Plt Count 184 (140-440) K/uL Neut % (Auto) 77.4 H (42.0-72.0) % Lymph % (Auto) 15.4 L (20-44) % Ashe % (Auto) 6.7 (0.0-11.0) % Eos % (Auto) 0.1 (0.0-7.0) % Baso % (Auto) 0.3 (0.0-3.0) % Neut # (Auto) 5.90 (1.7-7.0) K/uL Lymph # (Auto) 1.20 (0.90-2.90) K/uL Ashe # (Auto) 0.50 (0.00-0.90) K/UL Eos # (Auto) 0.01 (0.00-0.50) K/uL Baso # (Auto) 0.02 (0.00-0.30) K/uL Abs Immat Gran (auto) 0.01 (0.00-0.30) K/uL Imm/Tot Granulo (auto) 0.1 % Sodium 136 (135-149) mmol/L Potassium 4.2 (3.6-5.1) mmol/L Chloride 105 (96-114) mmol/L Carbon Dioxide 24 (20-32) mmol/L Anion Gap 7 (7-15) mEq/L BUN 15 (7-30) mg/dL Creatinine 0.9 (0.5-1.5) mg/dL Estimated GFR 71 ml/min Glucose 83 (60-115) mg/dL Calcium 8.8 (8.4-10.6) mg/dL Total Bilirubin 1.7 H (0.1-1.5) mg/dL Direct Bilirubin 0.4 (0.0-0.5) mg/dL AST 31 (12-35) U/L ALT 16 (4-35) U/L Alkaline Phosphatase 73 (40-150) U/L POC Troponin I High Sensi 4.5 (2.9-13.0) pg/mL C-Reactive Protein < 0.5 L (0.5-1.0) mg/dL Total Protein 6.7 (6.0-8.3) g/dL Albumin 4.2 (3.3-5.0) g/dL Imaging Data CT scan - chest: Attestation: I have reviewed the pertinent imaging results. Radiologist's impression: Patient: ALICIA JEFFERSON Facility: [facility] Site . Site : 1960 Study: CT-Chest Angio 95CC ISOVUE 370-09/10/2025 12:16:46 PM Ordering Physician: Angel Groves Final Report: INDICATION: Shaking episode, shortness of breath. TECHNIQUE: CT chest PE was acquired with 95 cc Isovue 370 IV contrast. COMPARISON: None. FINDINGS: Heart and vasculature: Contrast opacification of the pulmonary arterial tree is adequate. No sign of pulmonary embolism. Heart size is normal. Thoracic aorta and pulmonary artery are normal in caliber. Mitral valve calcification. Lungs and pleura: Scattered mild bibasilar atelectasis versus scarring. No suspicious nodule, consolidation, pleural effusion, or pneumothorax. Lymph nodes/mediastinum: No mediastinal, hilar, or axillary adenopathy. Moderate-sized hiatal hernia. Chest wall: No masses. Upper abdomen: No acute or significant findings. Bones: Unremarkable for age. IMPRESSION: No pulmonary embolism. No acute findings in the chest. Please note that all CT scans at this facility use dose modulation, iterative reconstruction, and/or weight-based dosing when appropriate to reduce radiation dose to as low as reasonably achievable. Dictated by Toan Stroud MD @ 09/10/2025 12:42:[address] scan - head: Attestation: I have reviewed the pertinent imaging results. Radiologist's impression: Patient: ALICIA JEFFERSON Facility: [facility] Site . Site : 1960 Study: CT-Head WITHOUT-09/10/2025 12:16:13 PM Ordering Physician: Angel Groves Final Report: Indication: Shaking episode Technique: Volumetric multidetector CT images of the head were obtained without the administration of low osmolar intravenous contrast. Comparison: MRI brain without contrast July 11, 2018 Findings: There is no intra-axial or extra-axial fluid collection. There is no mass effect or midline shift. There is age-related cortical atrophy with mild sulcal widening and ex vacuo dilatation of the lateral ventricles. There are chronic small vessel disease changes in the subcortical and periventricular white matter without lost urbina-white differentiation. The orbits and their contents are grossly within normal limits. The bony calvarium is grossly intact. The paranasal sinuses are clear. The mastoid air cells are well aerated. Impression: Age-related and chronic small vessel disease changes of brain without acute intracranial abnormalities. Please note that all CT scans at this facility use dose modulation, iterative reconstruction, and/or weight-based dosing when appropriate to reduce radiation dose to as low as reasonably achievable. Dictated by Haim Mjeia MD @ 09/10/2025 12:33:06 PM Discharge Plan Discharge Clinical Impression: CO2 retention Patient Disposition: Home, Self-Care Condition: Improved Additional Instructions: Your test today are all normal. I spoke with the neurologist who suspects that your symptoms are related to sleep apnea/CO2 retention. He does not feel this likely seizure. It sounds like you should schedule for a sleep study and consideration of CPAP. If you have recurrent episodes or other new symptoms, return to the ER at any time. You can schedule a sleep study by calling our clinic at [phone]. Prescriptions: No Action magnesium citrate Solution 150 ml PO ONCE zinc gluconate 100 mg tablet 450 mg PO ONCE Probiotic PO .QD potassium chloride [Klor-Con 10] 10 mEq tablet extended release 20 meq PO QDAY progesterone/testosterone/DHEA cream topical cholecalciferol (vitamin D3) 25 mcg (1,000 unit) capsule 50 mcg PO QDAY levothyroxine 75 mcg capsule 75 mcg PO QDAY vitamin B complex Capsule 1 cap PO QDAY triamterene-hydrochlorothiazid 37.5-25 mg tablet 1 tab PO QDAY Qty: 90 3RF Follow Up/Referrals: Alanna Denny MD [Primary Care Provider, Family Practice] Stand Alone Forms: [employer] Info Instructions
[2025-09-10 11:10] LABS: Hematocrit* 45.7 % (33.0-51.0); Hemoglobin* 15.7 gm/dL (12.0-16.0); Immature Granulocytes Abs Auto 0.01 K/uL (0.00-0.30); Immature Granulocytes Pct Auto 0.1 %; Mean Corpuscular HGB Conc 34 gm/dL (32-36); Mean Corpuscular Hemoglobin 31 pg (26-34); Mean Corpuscular Volume 91 fL (80-100); RDW Coefficient of Variation % 12.8 % (11.5-15.5); Red Blood Count* 5.04 m/uL (4.00-5.20); White Blood Count* 7.66 K/uL (4.50-11.00)
[2025-09-10 11:13] LABS: Lymphocytes Absolute Auto 1.20 K/uL (0.90-2.90); Slide Review Reflex No
[2025-09-10 11:23] LABS: Albumin* 4.2 g/dL (3.3-5.0); Chloride* 105 mmol/L (96-114)
[2025-09-10 11:24] LABS: Potassium* 4.2 mmol/L (3.6-5.1); Sodium* 136 mmol/L (135-149)
[2025-09-10 11:26] LABS: Blood Urea Nitrogen* 15 mg/dL (7-30); Creatinine* 0.9 mg/dL (0.5-1.5); Estimated Glomerular Filt Rate 71 ml/min
[2025-09-10 11:27] LABS: Alanine Aminotransferase* 16 U/L (4-35); Alkaline Phosphatase* 73 U/L (40-150); Anion Gap 7 mEq/L (7-15); Aspartate Amino Transferase* 31 U/L (12-35); Bilirubin Direct* 0.4 mg/dL (0.0-0.5); Bilirubin Total* 1.7 mg/dL (0.1-1.5); Calcium* 8.8 mg/dL (8.4-10.6); Carbon Dioxide* 24 mmol/L (20-32); Glucose* 83 mg/dL (60-115); Total Protein* 6.7 g/dL (6.0-8.3)
--- NOTE | 2025-09-10 11:46 | CRLHL7_ITS ---
For Patients: As a result of the Century Cures Act, medical imaging exams and procedure reports are released immediately into your electronic medical record. You may view this report before your referring provider. If you have questions, please contact your health care provider. Indication: Shaking episode Technique: Volumetric multidetector CT images of the head were obtained without the administration of low osmolar intravenous contrast. Comparison: MRI brain without contrast July 11, 2018 Findings: There is no intra-axial or extra-axial fluid collection. There is no mass effect or midline shift. There is age-related cortical atrophy with mild sulcal widening and ex vacuo dilatation of the lateral ventricles. There are chronic small vessel disease changes in the subcortical and periventricular white matter without lost urbina-white differentiation. The orbits and their contents are grossly within normal limits. The bony calvarium is grossly intact. The paranasal sinuses are clear. The mastoid air cells are well aerated. Impression: Age-related and chronic small vessel disease changes of brain without acute intracranial abnormalities. Please note that all CT scans at this facility use dose modulation, iterative reconstruction, and/or weight-based dosing when appropriate to reduce radiation dose to as low as reasonably achievable. Dictated by Haim Mejia MD @ 09/10/2025 12:33:06 PM (Electronically Signed)
== END 2025-09-10 13:03 | disposition home or self-care (01) ==
PROVIDERS: Emergency Provider Emergency Medicine; PCP Family Medicine
DX: E87.29 Other acidosis (principal); R25.1 Tremor, unspecified
CPT/HCPCS: 36415; 70450; 71275; 80048; 80076; 84484; 85025; 86140; 93005; 99284; 99285; J7030; Q9967